=== PATIENT | female | born 1970 | race Caucasian/White ===

== ENCOUNTER 2022-04-13 08:05 | Outpatient (REF) | payer OTHER, SELFPAY ==
--- NOTE | ~2022-04-13 | XR_ITS ---
EXAMINATION: XR KNEE STANDING BILATERAL XR KNEE LEFT 3 VIEWS XR KNEE RIGHT 3 VIEWS CLINICAL INFORMATION: Psoriasis. Knee pain. COMPARISON: None TECHNIQUE: AP standing view both knees. 3 views of right knee. 3 views of left knee. FINDINGS: AP standing view of the knees: There are osteophytes of bilateral tibiofemoral compartments. Mild narrowing of the medial tibiofemoral joint space of the right knee. No fracture or subluxation. There is a subarticular cystic lucency at the medial aspect of the medial tibial plateau of the left knee. Right knee: Tricompartmental osteophyte formation. Bones have normal alignment. No erosions or periostitis. There appears to be a trace amount of fluid in the suprapatellar compartment. No intra-articular osteochondral body. Left knee: Small tricompartmental osteophytes. Have normal alignment. No erosions or periostitis. No overt knee joint effusion. No intra-articular osteochondral body. XR/XR knee standing BI IMPRESSION: * No radiographic evidence of or psoriatic arthritis at either knee. * Mild tricompartmental osteoarthritis of both knees.
--- NOTE | ~2022-04-13 | XR_ITS ---
EXAMINATION: XR HAND WRIST LEFT XR HAND WRIST RIGHT CLINICAL INFORMATION: Psoriatic arthritis. Pain in hands and wrists. COMPARISON: None TECHNIQUE: Right hand and wrist, total of 4 views Left hand and wrist, total of 4 views FINDINGS: Right hand and wrist: Bones have normal alignment throughout the hand or wrist. The joint spaces are well-preserved. Minimal osteophyte formation of the first carpometacarpal joint. There appears to be a subchondral cyst of the distal lunate. The metacarpophalangeal joints are normal. Small marginal osteophytes are present at thumb interphalangeal joint and at some of the distal interphalangeal joints. No erosions or periostitis. Left hand and wrist: Bones have normal alignment throughout the hand or wrist. The joint spaces are well-preserved. There appears to be a subchondral cyst of the distal lunate. The metacarpophalangeal joints are normal. Small marginal osteophytes are present at thumb interphalangeal joint and at some of the distal interphalangeal joints. No erosions or periostitis. XR/XR hand wrist LT IMPRESSION: * No evidence of an inflammatory arthropathy in either hand or wrist. 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
--- NOTE | ~2022-04-13 | XR_ITS ---
EXAMINATION: XR HAND WRIST LEFT XR HAND WRIST RIGHT CLINICAL INFORMATION: Psoriatic arthritis. Pain in hands and wrists. COMPARISON: None TECHNIQUE: Right hand and wrist, total of 4 views Left hand and wrist, total of 4 views FINDINGS: Right hand and wrist: Bones have normal alignment throughout the hand or wrist. The joint spaces are well-preserved. Minimal osteophyte formation of the first carpometacarpal joint. There appears to be a subchondral cyst of the distal lunate. The metacarpophalangeal joints are normal. Small marginal osteophytes are present at thumb interphalangeal joint and at some of the distal interphalangeal joints. No erosions or periostitis. Left hand and wrist: Bones have normal alignment throughout the hand or wrist. The joint spaces are well-preserved. There appears to be a subchondral cyst of the distal lunate. The metacarpophalangeal joints are normal. Small marginal osteophytes are present at thumb interphalangeal joint and at some of the distal interphalangeal joints. No erosions or periostitis. XR/XR hand wrist RT IMPRESSION: * No evidence of an inflammatory arthropathy in either hand or wrist. 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
--- NOTE | ~2022-04-13 | XR_ITS ---
EXAMINATION: XR KNEE STANDING BILATERAL XR KNEE LEFT 3 VIEWS XR KNEE RIGHT 3 VIEWS CLINICAL INFORMATION: Psoriasis. Knee pain. COMPARISON: None TECHNIQUE: AP standing view both knees. 3 views of right knee. 3 views of left knee. FINDINGS: AP standing view of the knees: There are osteophytes of bilateral tibiofemoral compartments. Mild narrowing of the medial tibiofemoral joint space of the right knee. No fracture or subluxation. There is a subarticular cystic lucency at the medial aspect of the medial tibial plateau of the left knee. Right knee: Tricompartmental osteophyte formation. Bones have normal alignment. No erosions or periostitis. There appears to be a trace amount of fluid in the suprapatellar compartment. No intra-articular osteochondral body. Left knee: Small tricompartmental osteophytes. Have normal alignment. No erosions or periostitis. No overt knee joint effusion. No intra-articular osteochondral body. XR/XR knee LT 3V IMPRESSION: * No radiographic evidence of or psoriatic arthritis at either knee. * Mild tricompartmental osteoarthritis of both knees.
--- NOTE | ~2022-04-13 | XR_ITS ---
EXAMINATION: XR KNEE STANDING BILATERAL XR KNEE LEFT 3 VIEWS XR KNEE RIGHT 3 VIEWS CLINICAL INFORMATION: Psoriasis. Knee pain. COMPARISON: None TECHNIQUE: AP standing view both knees. 3 views of right knee. 3 views of left knee. FINDINGS: AP standing view of the knees: There are osteophytes of bilateral tibiofemoral compartments. Mild narrowing of the medial tibiofemoral joint space of the right knee. No fracture or subluxation. There is a subarticular cystic lucency at the medial aspect of the medial tibial plateau of the left knee. Right knee: Tricompartmental osteophyte formation. Bones have normal alignment. No erosions or periostitis. There appears to be a trace amount of fluid in the suprapatellar compartment. No intra-articular osteochondral body. Left knee: Small tricompartmental osteophytes. Have normal alignment. No erosions or periostitis. No overt knee joint effusion. No intra-articular osteochondral body. XR/XR knee RT 3V IMPRESSION: * No radiographic evidence of or psoriatic arthritis at either knee. * Mild tricompartmental osteoarthritis of both knees.
[2022-04-13 09:09] LABS: MANUAL DIFF FLAG NO
[2022-04-13 09:23] LABS: Basophils Absolute Auto 0.1 X10*3/uL (0.0-0.2); Eosinophils Absolute Auto 0.3 X10*3/uL (0.0-0.4); Eosinophils Percent Auto 2.2 % (0-4); Hematocrit 40.1 % (37.0-47.0); Hemoglobin 13.2 g/dl (12.0-16.0); Imm Gran Abs Auto 0.13 X10*3/uL (0.00-0.03); Imm Gran Pct Auto 1.1 % (0.0-0.4); Lymphocytes Absolute Auto 3.5 X10*3/uL (1.2-4.9); Lymphocytes Percent Auto 30.1 % (20-40); Mean Corpuscular HGB Conc 32.9 g/dl (31.0-35.0); Mean Corpuscular Hemoglobin 30.1 pg (27.0-33.0); Mean Corpuscular Volume 91.6 fL (80.0-98.0); Mean Platelet Volume 10.7 fL (9.4-12.3); Monocytes Absolute Auto 0.9 X10*3/uL (0.1-1.2); Monocytes Percent Auto 7.4 % (2-11); Neutrophils Absolute Auto 6.7 x10*3/uL (2.0-8.3); Neutrophils Percent Auto 58.2 % (45-73); Platelet Count 263 X10*3/uL (160-400); Red Blood Count 4.38 X10*6/uL (4.20-5.50); Red Cell Distribution Width 12.4 % (11.0-16.0); White Blood Count 11.6 X10*3/uL (4.8-10.8)
[2022-04-13 10:08] LABS: Alanine Aminotransferase 18 U/L (0-31); Albumin Level 4.1 g/dL (3.5-5.0); Alkaline Phosphatase 178 U/L (39-117); Anion Gap 15 (12-20); Aspartate Amino Transferase 15 U/L (5-31); Bilirubin Total 0.5 mg/dL (0.0-1.0); Blood Urea Nitrogen 13 mg/dL (9-16); C Reactive Protein 3.24 mg/dL (< or = 0.50); Calcium 9.1 mg/dL (8.4-10.2); Carbon Dioxide 25 mmol/L (22-29); Chloride 99 mmol/L (96-108); Estimated Glomerular Filt Rate > 60; Glucose Random 210 mg/dL (60-115); Sodium 135 mmol/L (135-145)
[2022-04-13 10:12] LABS: TSH reflex Free T4 1.49 uIU/mL (0.32-4.0)
[2022-04-13 11:19] LABS: Appearance Urine Clear; Color Urine Yellow; Glucose Urine UA Negative (Negative); Leukocyte Esterase Urine Negative (Negative); Nitrite Urine Negative (Negative); Urine Blood Negative (Negative); Urine Ketones Negative (Negative); Urine Protein Negative (Neg-Trace)
[2022-04-13 11:29] LABS: Bacteria Urine None Seen (None Seen); Hyaline Casts Urine 0-2 /LPF (0-2); RBC Urine 0-2 /HPF (0-2); Squamous Epithelial Cell Urine 0-2 /HPF (0-2); WBC Urine 0-5 /HPF (0-5)
[2022-04-13 12:00] LABS: Creatinine Urine 69.54 mg/dL; Total Protein Urine Random < 7 mg/dL (<12)
[2022-04-13 16:01] LABS: Erythrocyte Sedimentation Rate 28 MM/HR (0-20)
[2022-04-14 18:07] LABS: Complement C3 162 mg/dL (83-193)
[2022-04-17 14:36] LABS: IgA 309 mg/dL (47-310); IgG 1069 mg/dL (600-1640); IgM 128 mg/dL (50-300)
[2022-04-17 18:52] LABS: Cyclic Citrullinated Peptide <16 UNITS
[2022-04-17 21:57] LABS: Antibody to SS-A Antigen <1.0 NEG AI (<1.0 NEG); Antibody to SS-B Antigen <1.0 NEG AI (<1.0 NEG); Cardiolipin IgG Ab <2.0 GPL-U/mL; Cardiolipin IgM Ab <2.0 MPL-U/mL; SM/Ribonucleoprotein Ab <1.0 NEG AI (<1.0 NEG); Smith Protein <1.0 NEG AI (<1.0 NEG)
[2022-04-17 22:37] LABS: PTT (LAC) Screen 37 sec (<=40)
[2022-04-18 14:02] LABS: Mitochondrial Antibodies NEGATIVE (NEGATIVE)
[2022-04-18 18:11] LABS: Prot Elec - Albumin 3.7 g/dL (3.8-4.8); Prot Elec - Alpha1 0.4 g/dL (0.2-0.3); Prot Elec - Alpha2 0.8 g/dL (0.5-0.9); Prot Elec - Beta 1 0.5 g/dL (0.4-0.6); Prot Elec - Beta 2 0.4 g/dL (0.2-0.5); Prot Elec - Total Protein 6.7 g/dL (6.1-8.1)
[2022-04-18 21:33] LABS: Beta-2 Glycoprotein IgA <2.0 U/mL (<20.0); Beta-2 Glycoprotein IgG <2.0 U/mL (<20.0); Beta-2 Glycoprotein IgM <2.0 U/mL (<20.0)
[2022-04-19 06:42] LABS: Liver Kidney Microsomal Ab <=20.0 U (<=20.0)
[2022-04-19 14:12] LABS: DNAds, Crithidia Antibody Negative (Negative)
[2022-04-20 09:12] LABS: HLA B27 Negative (Negative)
[2022-04-20 16:55] LABS: Smooth Muscle Antibody <20 U (<20)
== END 2022-04-13 08:06 | disposition home or self-care (01) ==
LOC: HO.XRAY 08:05
PROVIDERS: PCP Internal Medicine; Visit Provider Student in an Organized Health Care Education/Training Program
DX: L40.50 Arthropathic psoriasis, unspecified (principal); R76.8 Other specified abnormal immunological findings in serum; M79.641 Pain in right hand; M79.642 Pain in left hand; M25.531 Pain in right wrist; M25.532 Pain in left wrist; M25.561 Pain in right knee; M25.562 Pain in left knee
CPT/HCPCS: 36415; 73110; 73130; 73562; 73565; 80053; 81001; 82550; 82784; 84156; 84165; 84443; 85025; 85597; 85613; 85652; 85730; 86015; 86140; 86146; 86147; 86160; 86200; 86235; 86255; 86256; 86334; 86376; 86812

== ENCOUNTER 2022-06-22 08:35 | Outpatient (REF) | payer OTHER, SELFPAY ==
[2022-06-22 10:22] LABS: MANUAL DIFF FLAG NO
[2022-06-22 10:28] LABS: Basophils Absolute Auto 0.1 X10*3/uL (0.0-0.2); Basophils Percent Auto 0.9 % (0-2); Eosinophils Absolute Auto 0.2 X10*3/uL (0.0-0.4); Eosinophils Percent Auto 1.9 % (0-4); Hematocrit 39.5 % (37.0-47.0); Hemoglobin 13.2 g/dl (12.0-16.0); Imm Gran Abs Auto 0.04 X10*3/uL (0.00-0.03); Imm Gran Pct Auto 0.4 % (0.0-0.4); Lymphocytes Absolute Auto 3.5 X10*3/uL (1.2-4.9); Lymphocytes Percent Auto 35.3 % (20-40); Mean Corpuscular HGB Conc 33.4 g/dl (31.0-35.0); Mean Corpuscular Hemoglobin 30.7 pg (27.0-33.0); Mean Corpuscular Volume 91.9 fL (80.0-98.0); Mean Platelet Volume 11.1 fL (9.4-12.3); Monocytes Absolute Auto 0.6 X10*3/uL (0.1-1.2); Monocytes Percent Auto 5.8 % (2-11); Neutrophils Absolute Auto 5.6 x10*3/uL (2.0-8.3); Neutrophils Percent Auto 55.7 % (45-73); Platelet Count 276 X10*3/uL (160-400); Red Cell Distribution Width 13.3 % (11.0-16.0)
[2022-06-22 10:40] LABS: Alanine Aminotransferase 20 U/L (0-31); Alkaline Phosphatase 133 U/L (39-117); Anion Gap 13 (12-20); Aspartate Amino Transferase 18 U/L (5-31); Bilirubin Total 0.5 mg/dL (0.0-1.0); Blood Urea Nitrogen 13 mg/dL (9-16); C Reactive Protein 1.28 mg/dL (< or = 0.50); Calcium 9.1 mg/dL (8.4-10.2); Carbon Dioxide 29 mmol/L (22-29); Chloride 99 mmol/L (96-108); Estimated Glomerular Filt Rate > 60; Glucose Random 132 mg/dL (60-115); Potassium 4.7 mmol/L (3.3-5.1); Sodium 136 mmol/L (135-145); Total Protein 7.1 g/dL (6.5-8.0)
[2022-06-22 11:58] LABS: Erythrocyte Sedimentation Rate 23 MM/HR (0-20)
== END 2022-06-22 08:36 | disposition home or self-care (01) ==
LOC: HO.10HDL 08:35
PROVIDERS: Visit Provider Student in an Organized Health Care Education/Training Program
DX: L40.50 Arthropathic psoriasis, unspecified (principal)
CPT/HCPCS: 36415; 80053; 85025; 85652; 86140

== ENCOUNTER → 2022-06-29 08:30 | Outpatient (BNVA) | payer OTHER, SELFPAY | PROVIDERS: PCP Internal Medicine; Visit Provider Student in an Organized Health Care Education/Training Program | DX: Z13.89 Encounter for screening for other disorder (principal) ==